=== PATIENT | male | born 2000 | race Caucasian/White ===

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

== ENCOUNTER 2022-05-16 15:07 | Emergency (ER) | payer MEDICAID, SELFPAY ==
--- NOTE | ~2022-05-16 | CT_ITS ---
EXAMINATION: CT abdomen pelvis wo IV con CLINICAL INFORMATION: Reason for Exam Left flank/back pain. kidney stones? COMPARISON: No prior CT available for comparison. TECHNIQUE: Multidetector volumetric imaging was performed from the superior aspect of the liver through the pubic symphysis , noncontrasted study. Sagittal and coronal reformatted images were obtained on the technologist's workstation. This CT examination was performed using dose optimization techniques as appropriate, variously including the following: *Automated exposure control *Adjustment of mA and/or kV according to patient size (this includes techniques or standardized protocols for targeted exams where dose is matched to indication/reason for exam; i.e. extremities or head) *Use of iterative reconstruction technique DLP: 559 mGy-cm FINDINGS: LOWER THORAX: Included lung bases are clear. HEPATOBILIARY: No focal hepatic lesions. No biliary ductal dilatation. GALLBLADDER: Gallbladder unremarkable. SPLEEN: Spleen is normal in size. PANCREAS: No focal mass or ductal dilatation. STOMACH AND GASTROINTESTINAL TRACT: Stomach is grossly unremarkable. There is no bowel distention or thickening. No CT evidence of appendicitis. ADRENALS: No adrenal nodules. KIDNEYS/URETERS: Mild left renal hydronephrosis and hydroureter due to obstructing 3 mm stone found in the distal left ureter approximately 10 cm proximal to the UVJ. Right kidney is normal. Perinephric fat remain clear. URINARY BLADDER: Partially decompressed. PELVIC VISCERA: Unremarkable PERITONEUM: No free air or fluid. LYMPH NODES: No lymphadenopathy. VASCULAR:Abdominal aorta normal in size, no aneurysm found. BONES, ABDOMINAL WALL AND SOFT TISSUES: Age-appropriate changes of the spine and skeletal system, no destructive osteolytic or osteosclerotic bone lesion found CT/CT abdomen pelvis wo IV con IMPRESSION: Mild left renal hydronephrosis and hydroureter due to obstructing 3 mm stone found in the distal left ureter approximately 10 cm proximal to the UVJ.
[2022-05-16 15:37] VITALS: BP 168/102; PULSE 91; RESP 18; TEMP 36.7; O2SAT 99; BMI 28.8
--- NOTE | 2022-05-16 15:41 | ED.GENADULT ---
HPI - General Adult General Chief complaint: Urogenital-Male <MAVERICK Seaman - Last Filed: 05/17/22 12:26> Stated complaint: lower back pain <MAVERICK Seaman - Last Filed: 05/17/22 12:26> Time Seen by Provider: 05/16/22 15:43 <MAVERICK Seaman - Last Filed: 05/17/22 12:26> History of Present Illness HPI narrative: Patient complains of abrupt onset of severe left flank pain radiating to the groin that started approximately 1 hour ago, no vomiting, pain is not associated with movement there is no fever no chills no dysuria no frequency no chest pain no shortness of breath, no obvious blood in the urine no burning with urination no discomfort with urination no frequency <MAVERICK Rodgers Last Filed: 05/22/22 15:10> Related Data Home medications: Previous Rx's Medication Instructions Recorded acetaminophen 500 mg tablet 1,000 mg PO QID PRN pain #30 tabs 05/16/22 ibuprofen 600 mg tablet 600 mg PO Q6H PRN pain #20 tabs 05/16/22 ondansetron 4 mg disintegrating 4 mg PO DAILY PRN Nausea or 05/16/22 tablet vomiting #10 tabs oxycodone 5 mg tablet 5 mg PO Q6H PRN pain #14 tabs 05/16/22 <MAVERICK Seaman - Last Filed: 05/17/22 12:26> Allergies/adverse reactions: Allergies Allergy/AdvReac Type Severity Reaction Status Date / Time No Known Allergies Allergy Verified 05/16/22 15:37 <MAVERICK Seaman Last Filed: 05/17/22 12:26> FOR[facility]LY [facility] Past Medical History Source: nursing notes reviewed <MAVERICK Rodgers - Last Filed: 05/22/22 15:10> Social History Social History: Social History Advance Directives: No Advance Directives Information Provided: Yes <MAVERICK Seaman Last Filed: 05/17/22 12:26> Physical Exam ED Vital Signs: Vital Signs - 24 hr 05/16/22 15:37 05/16/22 16:00 Temperature 98.0 F Pulse Rate 91 82 Respiratory Rate 18 16 Blood Pressure 168/102 H 124/71 Pulse Oximetry 99 98 Oxygen Delivery Method Room Air Room Air BMI result Body Mass Index 28.8 <MAVERICK Seaman Last Filed: 05/17/22 12:26> Vital Signs - 24 hr 05/16/22 15:37 05/16/22 16:00 Temperature 98.0 F Pulse Rate 91 82 Respiratory Rate 18 16 Blood Pressure 168/102 H 124/71 Pulse Oximetry 99 98 Oxygen Delivery Method Room Air Room Air BMI result Body Mass Index 28.8 <MAVERICK Rodgers - Last Filed: 05/22/22 15:10> General appearance is very uncomfortable The eyes anicteric no pallor no redness no discharge The pharynx no redness swelling or exudate mucous membranes are moist Neck is supple Chest clear to auscultation bilateral Heart no murmur The abdomen is soft nontender There is some mild left-sided flank tenderness there is no rebound or guarding, no CVA tenderness Extremities no edema Skin no rash Neuro no focal deficits <MAVERICK Rodgers Last Filed: 05/22/22 15:10> Course Course Course Narrative: RME: 22 yold male presents to the ED for sudden left flank/back pain radiating down left leg. patient brought immediatley [place] [facility] labs, CT scan of abdomen, morphine, and toradol ordered. <MAVERICK Seaman Last Filed: 05/17/22 12:26> RME: 22 yold male presents to the ED for sudden left flank/back pain radiating down left leg. patient brought immediatley to [facility]. labs, CT scan of abdomen, morphine, and toradol ordered. CT of abdomen and pelvis showed mild left hydronephrosis and hydroureter due to an obstructing 3 mm stone in the distal left ureter 10 cm proximal to UVJ Patient was treated with morphine and Toradol with full relief of his pain he was observed for an hour and a half and was discharged with the warning that pain could return, stone of 3 mm is very likely to pass Labs including renal function which was normal, urinalysis which was normal without sign of infection showed 3 RBCs, and CBC had no acute abnormalities Well-appearing patient is discharged diagnosis kidney stone <MAVERICK Rodgers Last Filed: 05/22/22 15:10> Medications Administered Discontinued Medications Generic Name Dose Route Start Last Admin Trade Name Freq PRN Reason Stop Dose Admin Ketorolac Tromethamine 30 mg 05/16/22 15:42 05/16/22 15:50 Ketorolac Tromethamine 30 Mg/Ml Vial IVPUSH 05/16/22 15:43 30 mg ONCE ONE Administration Morphine Sulfate 4 mg 05/16/22 15:42 05/16/22 15:50 Morphine Sulfate 4 Mg/Ml Cartridge IVPUSH 05/16/22 15:43 4 mg ONCE ONE Administration Protocol Morphine Sulfate 4 mg 05/16/22 15:45 05/16/22 15:51 Morphine Sulfate 4 Mg/Ml Cartridge IVPUSH 05/16/22 15:46 4 mg ONCE ONE Administration Protocol Morphine Sulfate 4 mg 05/16/22 17:36 05/16/22 18:06 Morphine Sulfate 4 Mg/Ml Cartridge IVPUSH 05/16/22 17:37 4 mg ONCE ONE Administration Protocol <MAVERICK Seaman - Last Filed: 05/17/22 12:26> Medications Administered Discontinued Medications Generic Name Dose Route Start Last Admin Trade Name Freq PRN Reason Stop Dose Admin Ketorolac Tromethamine 30 mg 05/16/22 15:42 05/16/22 15:50 Ketorolac Tromethamine 30 Mg/Ml Vial IVPUSH 05/16/22 15:43 30 mg ONCE ONE Administration Morphine Sulfate 4 mg 05/16/22 15:42 05/16/22 15:50 Morphine Sulfate 4 Mg/Ml Cartridge IVPUSH 05/16/22 15:43 4 mg ONCE ONE Administration Protocol Morphine Sulfate 4 mg 05/16/22 15:45 05/16/22 15:51 Morphine Sulfate 4 Mg/Ml Cartridge IVPUSH 05/16/22 15:46 4 mg ONCE ONE Administration Protocol Morphine Sulfate 4 mg 05/16/22 17:36 05/16/22 18:06 Morphine Sulfate 4 Mg/Ml Cartridge IVPUSH 05/16/22 17:37 4 mg ONCE ONE Administration Protocol <MAVERICK Rodgers - Last Filed: 05/22/22 15:10> Medical Decision Making Lab Data MDM Lab Attestation statement: I reviewed the patient's lab results. <MAVERICK Rodgers - Last Filed: 05/22/22 15:10> Result Diagrams: 05/16/22 15:49 05/16/22 15:48 <MAVERICK Seaman - Last Filed: 05/17/22 12:26> Labs: Lab Results 05/16/22 05/16/22 05/16/22 Range/Units 15:48 15:49 15:49 WBC 6.9 (4.8-10.8) X10*3/uL RBC 5.13 (4.60-5.80) X10*6/uL Hgb 16.2 (14.0-18.0) g/dl Hct 46.7 (42.0-52.0) % MCV 91.0 (80.0-98.0) fL MCH 31.6 (27.0-33.0) pg MCHC 34.7 (31.0-36.0) g/dl RDW 11.9 (11.0-16.0) % Plt Count 303 (160-400) X10*3/uL MPV 9.8 (9.4-12.4) fL Immature Gran % (Auto) 0.3 (0.0-0.4) % Neut % (Auto) 59.0 (45-73) % Lymph % (Auto) 31.3 (20-40) % [place] % (Auto) 8.0 (2-11) % Eos % (Auto) 1.0 (0-4) % Baso % (Auto) 0.4 (0-2) % Lymph # (Auto) 2.2 (1.2-4.9) X10*3/uL [place] # (Auto) 0.6 (0.1-1.2) X10*3/uL Eos # (Auto) 0.1 (0.0-0.4) X10*3/uL Baso # (Auto) 0.0 (0.0-0.2) X10*3/uL Abs Immat Gran (auto) 0.02 (0.00-0.03) X10*3/uL Absolute Neuts (auto) 4.1 (2.0-8.3) x10*3/uL Absolute Nucleated RBC 0.000 (0.0-0.012) X10*3/uL Nucleated RBC % (auto) 0.0 (0.0-0.2) /100WBC PT 12.1 (10.0-13.1) SEC INR 1.1 (0.9-1.1) APTT 27.0 (26.0-36.4) SEC Sodium 140 (135-145) mmol/L Potassium 3.9 (3.3-5.1) mmol/L Chloride 106 (96-108) mmol/L Carbon Dioxide 26 (22-29) mmol/L Anion Gap 12 (12-20) BUN 11 (9-16) mg/dL Creatinine 0.91 (0.5-1.4) mg/dL Estim Creat Clear Calc 137.1 Estimated GFR > 60 Random Glucose 104 (60-115) mg/dL Calcium 9.8 (8.4-10.2) mg/dL Total Bilirubin 0.6 (0.0-1.0) mg/dL AST 16 (5-37) U/L ALT 26 (0-40) U/L Alkaline Phosphatase 66 (39-117) U/L Total Protein 7.4 (6.5-8.0) g/dL Albumin 4.5 (3.5-5.0) g/dL Urine Color Urine Appearance Urine pH (5.0-9.0) Ur Specific [place] (1.005-1.025) Urine Protein (Neg-Trace) mg/dL Urine Glucose (UA) (Negative) mg/dL Urine Ketones (Negative) mg/dL Urine Blood (Negative) Urine Nitrite (Negative) Ur Leukocyte Esterase (Negative) Urine RBC (0-2) /HPF Urine WBC (0-5) /HPF Ur Squamous Epith Cells (0-2) /HPF Urine Bacteria (None Seen) Hyaline Casts (0-2) /LPF 05/16/22 Range/Units 16:51 WBC (4.8-10.8) X10*3/uL RBC (4.60-5.80) X10*6/uL Hgb (14.0-18.0) g/dl Hct (42.0-52.0) % MCV (80.0-98.0) fL MCH (27.0-33.0) pg MCHC (31.0-36.0) g/dl RDW (11.0-16.0) % Plt Count (160-400) X10*3/uL MPV (9.4-12.4) fL Immature Gran % (Auto) (0.0-0.4) % Neut % (Auto) (45-73) % Lymph % (Auto) (20-40) % [place] % (Auto) (2-11) % Eos % (Auto) (0-4) % Baso % (Auto) (0-2) % Lymph # (Auto) (1.2-4.9) X10*3/uL [place] # (Auto) (0.1-1.2) X10*3/uL Eos # (Auto) (0.0-0.4) X10*3/uL Baso # (Auto) (0.0-0.2) X10*3/uL Abs Immat Gran (auto) (0.00-0.03) X10*3/uL Absolute Neuts (auto) (2.0-8.3) x10*3/uL Absolute Nucleated RBC (0.0-0.012) X10*3/uL Nucleated RBC % (auto) (0.0-0.2) /100WBC PT (10.0-13.1) SEC INR (0.9-1.1) APTT (26.0-36.4) SEC Sodium (135-145) mmol/L Potassium (3.3-5.1) mmol/L Chloride (96-108) mmol/L Carbon Dioxide (22-29) mmol/L Anion Gap (12-20) BUN (9-16) mg/dL Creatinine (0.5-1.4) mg/dL Estim Creat Clear Calc Estimated GFR Random Glucose (60-115) mg/dL Calcium (8.4-10.2) mg/dL Total Bilirubin (0.0-1.0) mg/dL AST (5-37) U/L ALT (0-40) U/L Alkaline Phosphatase (39-117) U/L Total Protein (6.5-8.0) g/dL Albumin (3.5-5.0) g/dL Urine Color Yellow Urine Appearance Cloudy Urine pH 7.5 (5.0-9.0) Ur Specific [place] 1.020 (1.005-1.025) Urine Protein Trace (Neg-Trace) mg/dL Urine Glucose (UA) Negative (Negative) mg/dL Urine Ketones Negative (Negative) mg/dL Urine Blood Small (1+) H (Negative) Urine Nitrite Negative (Negative) Ur Leukocyte Esterase Negative (Negative) Urine RBC 3-5 H (0-2) /HPF Urine WBC 0-5 (0-5) /HPF Ur Squamous Epith Cells 0-2 (0-2) /HPF Urine Bacteria None Seen (None Seen) Hyaline Casts 0-2 (0-2) /LPF <MAVERICK Seaman - Last Filed: 05/17/22 12:26> Lab Results 05/16/22 05/16/22 05/16/22 Range/Units 15:48 15:49 15:49 WBC 6.9 (4.8-10.8) X10*3/uL RBC 5.13 (4.60-5.80) X10*6/uL Hgb 16.2 (14.0-18.0) g/dl Hct 46.7 (42.0-52.0) % MCV 91.0 (80.0-98.0) fL MCH 31.6 (27.0-33.0) pg MCHC 34.7 (31.0-36.0) g/dl RDW 11.9 (11.0-16.0) % Plt Count 303 (160-400) X10*3/uL MPV 9.8 (9.4-12.4) fL Immature Gran % (Auto) 0.3 (0.0-0.4) % Neut % (Auto) 59.0 (45-73) % Lymph % (Auto) 31.3 (20-40) % [place] % (Auto) 8.0 (2-11) % Eos % (Auto) 1.0 (0-4) % Baso % (Auto) 0.4 (0-2) % Lymph # (Auto) 2.2 (1.2-4.9) X10*3/uL [place] # (Auto) 0.6 (0.1-1.2) X10*3/uL Eos # (Auto) 0.1 (0.0-0.4) X10*3/uL Baso # (Auto) 0.0 (0.0-0.2) X10*3/uL Abs Immat Gran (auto) 0.02 (0.00-0.03) X10*3/uL Absolute Neuts (auto) 4.1 (2.0-8.3) x10*3/uL Absolute Nucleated RBC 0.000 (0.0-0.012) X10*3/uL Nucleated RBC % (auto) 0.0 (0.0-0.2) /100WBC PT 12.1 (10.0-13.1) SEC INR 1.1 (0.9-1.1) APTT 27.0 (26.0-36.4) SEC Sodium 140 (135-145) mmol/L Potassium 3.9 (3.3-5.1) mmol/L Chloride 106 (96-108) mmol/L Carbon Dioxide 26 (22-29) mmol/L Anion Gap 12 (12-20) BUN 11 (9-16) mg/dL Creatinine 0.91 (0.5-1.4) mg/dL Estim Creat Clear Calc 137.1 Estimated GFR > 60 Random Glucose 104 (60-115) mg/dL Calcium 9.8 (8.4-10.2) mg/dL Total Bilirubin 0.6 (0.0-1.0) mg/dL AST 16 (5-37) U/L ALT 26 (0-40) U/L Alkaline Phosphatase 66 (39-117) U/L Total Protein 7.4 (6.5-8.0) g/dL Albumin 4.5 (3.5-5.0) g/dL Urine Color Urine Appearance Urine pH (5.0-9.0) Ur Specific [place] (1.005-1.025) Urine Protein (Neg-Trace) mg/dL Urine Glucose (UA) (Negative) mg/dL Urine Ketones (Negative) mg/dL Urine Blood (Negative) Urine Nitrite (Negative) Ur Leukocyte Esterase (Negative) Urine RBC (0-2) /HPF Urine WBC (0-5) /HPF Ur Squamous Epith Cells (0-2) /HPF Urine Bacteria (None Seen) Hyaline Casts (0-2) /LPF 05/16/22 Range/Units 16:51 WBC (4.8-10.8) X10*3/uL RBC (4.60-5.80) X10*6/uL Hgb (14.0-18.0) g/dl Hct (42.0-52.0) % MCV (80.0-98.0) fL MCH (27.0-33.0) pg MCHC (31.0-36.0) g/dl RDW (11.0-16.0) % Plt Count (160-400) X10*3/uL MPV (9.4-12.4) fL Immature Gran % (Auto) (0.0-0.4) % Neut % (Auto) (45-73) % Lymph % (Auto) (20-40) % [place] % (Auto) (2-11) % Eos % (Auto) (0-4) % Baso % (Auto) (0-2) % Lymph # (Auto) (1.2-4.9) X10*3/uL [place] # (Auto) (0.1-1.2) X10*3/uL Eos # (Auto) (0.0-0.4) X10*3/uL Baso # (Auto) (0.0-0.2) X10*3/uL Abs Immat Gran (auto) (0.00-0.03) X10*3/uL Absolute Neuts (auto) (2.0-8.3) x10*3/uL Absolute Nucleated RBC (0.0-0.012) X10*3/uL Nucleated RBC % (auto) (0.0-0.2) /100WBC PT (10.0-13.1) SEC INR (0.9-1.1) APTT (26.0-36.4) SEC Sodium (135-145) mmol/L Potassium (3.3-5.1) mmol/L Chloride (96-108) mmol/L Carbon Dioxide (22-29) mmol/L Anion Gap (12-20) BUN (9-16) mg/dL Creatinine (0.5-1.4) mg/dL Estim Creat Clear Calc Estimated GFR Random Glucose (60-115) mg/dL Calcium (8.4-10.2) mg/dL Total Bilirubin (0.0-1.0) mg/dL AST (5-37) U/L ALT (0-40) U/L Alkaline Phosphatase (39-117) U/L Total Protein (6.5-8.0) g/dL Albumin (3.5-5.0) g/dL Urine Color Yellow Urine Appearance Cloudy Urine pH 7.5 (5.0-9.0) Ur Specific [place] 1.020 (1.005-1.025) Urine Protein Trace (Neg-Trace) mg/dL Urine Glucose (UA) Negative (Negative) mg/dL Urine Ketones Negative (Negative) mg/dL Urine Blood Small (1+) H (Negative) Urine Nitrite Negative (Negative) Ur Leukocyte Esterase Negative (Negative) Urine RBC 3-5 H (0-2) /HPF Urine WBC 0-5 (0-5) /HPF Ur Squamous Epith Cells 0-2 (0-2) /HPF Urine Bacteria None Seen (None Seen) Hyaline Casts 0-2 (0-2) /LPF <MAVERICK Rodgers - Last Filed: 05/22/22 15:10> Discharge Plan Discharge Clinical Impression: Kidney stone <MAVERICK Seaman - Last Filed: 05/17/22 12:26> Patient Disposition: Home, Self-Care <MAVERICK Seaman - Last Filed: 05/17/22 12:26> Additional Instructions: CT scan showed a 3 mm stone on the left side, stones this size are very likely to pass Use Motrin Tylenol and oxycodone if needed for pain Use Zofran if needed for nausea Drink plenty of fluids If pain worsens and is not well controlled with medication return to the ER for further evaluation, or for any worse condition or any concerns Urine test did not show any sign of infection Blood tests had no worrisome abnormalities Follow with primary doctor and urologist <MAVERICK Seaman - Last Filed: 05/17/22 12:26> Prescriptions: New oxycodone 5 mg tablet 5 mg PO Q6H PRN (Reason: pain) Qty: 14 0RF Rx Instructions: Partial Fill upon patient request. acetaminophen 500 mg tablet 1,000 mg PO QID PRN (Reason: pain) Qty: 30 0RF ondansetron 4 mg tablet,disintegrating 4 mg PO DAILY PRN (Reason: Nausea or vomiting) Qty: 10 0RF ibuprofen 600 mg tablet 600 mg PO Q6H PRN (Reason: pain) Qty: 20 0RF <MAVERICK Seaman - Last Filed: 05/17/22 12:26> Referrals: Mark Webster MD [Physician] - (Kidney stones) <MAVERICK Seaman - Last Filed: 05/17/22 12:26> Stand Alone Forms: Work/School Release <MAVERICK Seaman - Last Filed: 05/17/22 12:26> Interventions: ED Discharge Assessment Last Done: 05/16/22 18:30 <MAVERICK Seaman - Last Filed: 05/17/22 12:26> Discharge Date/Time: 05/16/22 18:31 <MAVERICK Seaman - Last Filed: 05/17/22 12:26>
--- NOTE | 2022-05-16 15:44 | ED.MALEGU ---
HPI - Male Genitourinary General Chief complaint: Urogenital-Male Stated complaint: lower back pain Time Seen by Provider: 05/16/22 15:43 Related Data Previous Rx's Medication Instructions Recorded acetaminophen 500 mg tablet 1,000 mg PO QID PRN pain #30 tabs 05/16/22 ibuprofen 600 mg tablet 600 mg PO Q6H PRN pain #20 tabs 05/16/22 ondansetron 4 mg disintegrating 4 mg PO DAILY PRN Nausea or 05/16/22 tablet vomiting #10 tabs oxycodone 5 mg tablet 5 mg PO Q6H PRN pain #14 tabs 05/16/22 Allergies Allergy/AdvReac Type Severity Reaction Status Date / Time No Known Allergies Allergy Verified 05/16/22 15:37 PMFSH Social History Social History Advance Directives: No Advance Directives Information Provided: Yes Physical Exam Vital Signs: Vital Signs: Last Vital Signs Temp 98.0 F 05/16/22 15:37 Pulse 82 05/16/22 16:00 Resp 16 05/16/22 16:00 BP 124/71 05/16/22 16:00 Pulse Ox 98 05/16/22 16:00 O2 Del Method Room Air 05/16/22 16:00 BMI result Body Mass Index 28.8 Medications Administered Discontinued Medications Generic Name Dose Route Start Last Admin Trade Name Freq PRN Reason Stop Dose Admin Ketorolac Tromethamine 30 mg 05/16/22 15:42 05/16/22 15:50 Ketorolac Tromethamine 30 Mg/Ml Vial IVPUSH 05/16/22 15:43 30 mg ONCE ONE Administration Morphine Sulfate 4 mg 05/16/22 15:42 05/16/22 15:50 Morphine Sulfate 4 Mg/Ml Cartridge IVPUSH 05/16/22 15:43 4 mg ONCE ONE Administration Protocol Morphine Sulfate 4 mg 05/16/22 15:45 05/16/22 15:51 Morphine Sulfate 4 Mg/Ml Cartridge IVPUSH 05/16/22 15:46 4 mg ONCE ONE Administration Protocol Morphine Sulfate 4 mg 05/16/22 17:36 05/16/22 18:06 Morphine Sulfate 4 Mg/Ml Cartridge IVPUSH 05/16/22 17:37 4 mg ONCE ONE Administration Protocol Medical Decision Making Lab Data 05/16/22 15:49 05/16/22 15:48 Labs: Lab Results 05/16/22 05/16/22 05/16/22 Range/Units 15:48 15:49 15:49 WBC 6.9 (4.8-10.8) X10*3/uL RBC 5.13 (4.60-5.80) X10*6/uL Hgb 16.2 (14.0-18.0) g/dl Hct 46.7 (42.0-52.0) % MCV 91.0 (80.0-98.0) fL MCH 31.6 (27.0-33.0) pg MCHC 34.7 (31.0-36.0) g/dl RDW 11.9 (11.0-16.0) % Plt Count 303 (160-400) X10*3/uL MPV 9.8 (9.4-12.4) fL Immature Gran % (Auto) 0.3 (0.0-0.4) % Neut % (Auto) 59.0 (45-73) % Lymph % (Auto) 31.3 (20-40) % [place] % (Auto) 8.0 (2-11) % Eos % (Auto) 1.0 (0-4) % Baso % (Auto) 0.4 (0-2) % Lymph # (Auto) 2.2 (1.2-4.9) X10*3/uL [place] # (Auto) 0.6 (0.1-1.2) X10*3/uL Eos # (Auto) 0.1 (0.0-0.4) X10*3/uL Baso # (Auto) 0.0 (0.0-0.2) X10*3/uL Abs Immat Gran (auto) 0.02 (0.00-0.03) X10*3/uL Absolute Neuts (auto) 4.1 (2.0-8.3) x10*3/uL Absolute Nucleated RBC 0.000 (0.0-0.012) X10*3/uL Nucleated RBC % (auto) 0.0 (0.0-0.2) /100WBC PT 12.1 (10.0-13.1) SEC INR 1.1 (0.9-1.1) APTT 27.0 (26.0-36.4) SEC Sodium 140 (135-145) mmol/L Potassium 3.9 (3.3-5.1) mmol/L Chloride 106 (96-108) mmol/L Carbon Dioxide 26 (22-29) mmol/L Anion Gap 12 (12-20) BUN 11 (9-16) mg/dL Creatinine 0.91 (0.5-1.4) mg/dL Estim Creat Clear Calc 137.1 Estimated GFR > 60 Random Glucose 104 (60-115) mg/dL Calcium 9.8 (8.4-10.2) mg/dL Total Bilirubin 0.6 (0.0-1.0) mg/dL AST 16 (5-37) U/L ALT 26 (0-40) U/L Alkaline Phosphatase 66 (39-117) U/L Total Protein 7.4 (6.5-8.0) g/dL Albumin 4.5 (3.5-5.0) g/dL Urine Color Urine Appearance Urine pH (5.0-9.0) Ur Specific [place] (1.005-1.025) Urine Protein (Neg-Trace) mg/dL Urine Glucose (UA) (Negative) mg/dL Urine Ketones (Negative) mg/dL Urine Blood (Negative) Urine Nitrite (Negative) Ur Leukocyte Esterase (Negative) Urine RBC (0-2) /HPF Urine WBC (0-5) /HPF Ur Squamous Epith Cells (0-2) /HPF Urine Bacteria (None Seen) Hyaline Casts (0-2) /LPF 05/16/22 Range/Units 16:51 WBC (4.8-10.8) X10*3/uL RBC (4.60-5.80) X10*6/uL Hgb (14.0-18.0) g/dl Hct (42.0-52.0) % MCV (80.0-98.0) fL MCH (27.0-33.0) pg MCHC (31.0-36.0) g/dl RDW (11.0-16.0) % Plt Count (160-400) X10*3/uL MPV (9.4-12.4) fL Immature Gran % (Auto) (0.0-0.4) % Neut % (Auto) (45-73) % Lymph % (Auto) (20-40) % [place] % (Auto) (2-11) % Eos % (Auto) (0-4) % Baso % (Auto) (0-2) % Lymph # (Auto) (1.2-4.9) X10*3/uL [place] # (Auto) (0.1-1.2) X10*3/uL Eos # (Auto) (0.0-0.4) X10*3/uL Baso # (Auto) (0.0-0.2) X10*3/uL Abs Immat Gran (auto) (0.00-0.03) X10*3/uL Absolute Neuts (auto) (2.0-8.3) x10*3/uL Absolute Nucleated RBC (0.0-0.012) X10*3/uL Nucleated RBC % (auto) (0.0-0.2) /100WBC PT (10.0-13.1) SEC INR (0.9-1.1) APTT (26.0-36.4) SEC Sodium (135-145) mmol/L Potassium (3.3-5.1) mmol/L Chloride (96-108) mmol/L Carbon Dioxide (22-29) mmol/L Anion Gap (12-20) BUN (9-16) mg/dL Creatinine (0.5-1.4) mg/dL Estim Creat Clear Calc Estimated GFR Random Glucose (60-115) mg/dL Calcium (8.4-10.2) mg/dL Total Bilirubin (0.0-1.0) mg/dL AST (5-37) U/L ALT (0-40) U/L Alkaline Phosphatase (39-117) U/L Total Protein (6.5-8.0) g/dL Albumin (3.5-5.0) g/dL Urine Color Yellow Urine Appearance Cloudy Urine pH 7.5 (5.0-9.0) Ur Specific [place] 1.020 (1.005-1.025) Urine Protein Trace (Neg-Trace) mg/dL Urine Glucose (UA) Negative (Negative) mg/dL Urine Ketones Negative (Negative) mg/dL Urine Blood Small (1+) H (Negative) Urine Nitrite Negative (Negative) Ur Leukocyte Esterase Negative (Negative) Urine RBC 3-5 H (0-2) /HPF Urine WBC 0-5 (0-5) /HPF Ur Squamous Epith Cells 0-2 (0-2) /HPF Urine Bacteria None Seen (None Seen) Hyaline Casts 0-2 (0-2) /LPF Discharge Plan Discharge Clinical Impression: Kidney stone Patient Disposition: Home, Self-Care Additional Instructions: CT scan showed a 3 mm stone on the left side, stones this size are very likely to pass Use Motrin Tylenol and oxycodone if needed for pain Use Zofran if needed for nausea Drink plenty of fluids If pain worsens and is not well controlled with medication return to the ER for further evaluation, or for any worse condition or any concerns Urine test did not show any sign of infection Blood tests had no worrisome abnormalities Follow with primary doctor and urologist Prescriptions: New oxycodone 5 mg tablet 5 mg PO Q6H PRN (Reason: pain) Qty: 14 0RF Rx Instructions: Partial Fill upon patient request. acetaminophen 500 mg tablet 1,000 mg PO QID PRN (Reason: pain) Qty: 30 0RF ondansetron 4 mg tablet,disintegrating 4 mg PO DAILY PRN (Reason: Nausea or vomiting) Qty: 10 0RF ibuprofen 600 mg tablet 600 mg PO Q6H PRN (Reason: pain) Qty: 20 0RF Referrals: Mark Webster MD [Physician] - (Kidney stones) Stand Alone Forms: Work/School Release Interventions: ED Discharge Assessment Last Done: 05/16/22 18:30 Discharge Date/Time: 05/16/22 18:31
[2022-05-16] MEDS: Ketorolac Tromethamine 30 MG/ML VIAL IVPUSH (15:50)
[2022-05-16] MEDS: Morphine Sulfate 4 MG/ML CARTRIDGE IVPUSH ×3 (15:50→18:06)
--- NOTE | 2022-05-16 15:56 | PC.NURSE ---
20g IV in left AC- pt medicated per APR by Brien RN pt parents at bedside 11/16 pain pt has been taken to CT- awaiting provider
[2022-05-16 15:58] LABS: MANUAL DIFF FLAG NO
[2022-05-16 16:00] VITALS: BP 124/71; PULSE 82; RESP 16; O2SAT 98
[2022-05-16 16:00] LABS: Basophils Percent Auto 0.4 % (0-2); Eosinophils Absolute Auto 0.1 X10*3/uL (0.0-0.4); Hematocrit 46.7 % (42.0-52.0); Hemoglobin 16.2 g/dl (14.0-18.0); Imm Gran Abs Auto 0.02 X10*3/uL (0.00-0.03); Imm Gran Pct Auto 0.3 % (0.0-0.4); Lymphocytes Absolute Auto 2.2 X10*3/uL (1.2-4.9); Lymphocytes Percent Auto 31.3 % (20-40); Mean Corpuscular HGB Conc 34.7 g/dl (31.0-36.0); Mean Corpuscular Hemoglobin 31.6 pg (27.0-33.0); Mean Platelet Volume 9.8 fL (9.4-12.4); Monocytes Absolute Auto 0.6 X10*3/uL (0.1-1.2); Neutrophils Absolute Auto 4.1 x10*3/uL (2.0-8.3); Platelet Count 303 X10*3/uL (160-400); Red Blood Count 5.13 X10*6/uL (4.60-5.80); Red Cell Distribution Width 11.9 % (11.0-16.0); White Blood Count 6.9 X10*3/uL (4.8-10.8)
[2022-05-16 16:06] LABS: INTERNATIONAL NORM RATIO 1.1 (0.9-1.1); Prothrombin Time 12.1 SEC (10.0-13.1)
[2022-05-16 16:14] LABS: Alanine Aminotransferase 26 U/L (0-40); Albumin Level 4.5 g/dL (3.5-5.0); Alkaline Phosphatase 66 U/L (39-117); Anion Gap 12 (12-20); Aspartate Amino Transferase 16 U/L (5-37); Bilirubin Total 0.6 mg/dL (0.0-1.0); Blood Urea Nitrogen 11 mg/dL (9-16); Calcium 9.8 mg/dL (8.4-10.2); Carbon Dioxide 26 mmol/L (22-29); Chloride 106 mmol/L (96-108); Creatinine Clr Calc Pharmacy 137.1; Estimated Glomerular Filt Rate > 60; Glucose Random 104 mg/dL (60-115); Potassium 3.9 mmol/L (3.3-5.1); Sodium 140 mmol/L (135-145); Total Protein 7.4 g/dL (6.5-8.0)
[2022-05-16 16:57] LABS: Appearance Urine Cloudy; Color Urine Yellow; Glucose Urine UA Negative (Negative); Leukocyte Esterase Urine Negative (Negative); Nitrite Urine Negative (Negative); PH 7.5 (5.0-9.0); UMIC TRIGGER UACC YES; Urine Blood Small (1+) (Negative); Urine Ketones Negative (Negative); Urine Protein Trace mg/dL (Neg-Trace)
[2022-05-16 17:17] LABS: Bacteria Urine None Seen (None Seen); Hyaline Casts Urine 0-2 /LPF (0-2); Squamous Epithelial Cell Urine 0-2 /HPF (0-2); WBC Urine 0-5 /HPF (0-5)
== END 2022-05-16 18:31 | disposition home or self-care (01) ==
PROVIDERS: Physician Assistant; Emergency Provider Internal Medicine; PCP Nurse Practitioner Family
DX: N20.0 Calculus of kidney (principal); M54.50 Low back pain, unspecified; Z79.899 Other long term (current) drug therapy
CPT/HCPCS: 36415; 74176; 80053; 81001; 81003; 85025; 85610; 85730; 96374; 96376; 99284; J1885; J2270